=== PATIENT | male | born 1965 | race Hispanic/Latino ===

== ENCOUNTER 2022-03-11 15:27 | Outpatient (CLI) | payer OTHER | END 2022-03-11 15:28 | disposition home or self-care (01) | LOC: CSHULT 15:27 | PROVIDERS: ATTEND Urology | DX: N40.1 Benign prostatic hyperplasia with lower urinary tract symptoms (principal); M54.50 Low back pain, unspecified; M25.552 Pain in left hip; M47.817 Spondylosis without myelopathy or radiculopathy, lumbosacral region; M16.12 Unilateral primary osteoarthritis, left hip; M94.8X8 Other specified disorders of cartilage, other site | CPT/HCPCS: 72100; 76770 ==

== ENCOUNTER 2022-08-12 08:34 | Day surgery (SDC) | payer OTHER ==
[2022-08-08 15:31] VITALS: BMI 29.7
[2022-08-12] MEDS ORDERED: PROPOFOL 40 ML ONE (08:41)
== END 2022-08-12 12:44 | disposition home or self-care (01) ==
LOC: CSHSDC 08:34
PROVIDERS: ATTEND Internal Medicine Gastroenterology
PROC: 0DBN8ZZ Excision of Sigmoid Colon, Via Natural or Artificial Opening Endoscopic (ICD-10-PCS; principal; 2022-08-12)
DX: Z12.11 Encounter for screening for malignant neoplasm of colon (principal); K63.5 Polyp of colon; K57.30 Diverticulosis of large intestine without perforation or abscess without bleeding; K64.9 Unspecified hemorrhoids; I10 Essential (primary) hypertension; N40.0 Benign prostatic hyperplasia without lower urinary tract symptoms; Z87.891 Personal history of nicotine dependence; Z79.899 Other long term (current) drug therapy
CPT/HCPCS: 88305; J2704